=== PATIENT | female | born 1985 | race Caucasian/White ===

== ENCOUNTER 2018-10-17 20:42 | Emergency (ER) | payer BC ==
[2018-10-17 20:57] VITALS: BP 139/90
--- NOTE | 2018-10-17 21:52 | EDM.PDOC ---
ED HPI GENERAL MEDICAL PROBLEM - General Chief Complaint: ENT Problem Stated Complaint: LEFT SIDE OF TONGUE NUMB Time Seen by Provider: 10/17/18 21:13 Source of Information: Reports: Patient, RN Notes Reviewed History Limitations: Reports: No Limitations - History of Present Illness INITIAL COMMENTS - FREE TEXT/NARRATIVE: Patient is a 33-year-old female who presents to the ED today for the evaluation of left sided tongue numbness. The patient noticed this started roughly 7 AM this morning. This started after she ate [employer] Mc[employer]in for [employer]. She states that she had another bout of this for lunch today where she ate [employer]. She states that there has now been a constant pain in her left tongue for around the last hour. She states for the last week or so she's had a dull headache to the left occipital side of her head behind her ear. She did take 81 mg aspirin before coming to the ED. She has not noticed any slurred speech, facial droop or other confusion. She states the tongue feels as if she had gone to the dentist and her tongue is waking up from the numbing medication. She states she does have some numbness to the roof of her mouth on the left side as well. She noted that she did have a slight metallic taste with these episodes. She did note that she had recent dental surgery done in early September where she had a right lower molar removed. The patient notes that this was somewhat traumatic as the dentist had to really work on her tooth to get it out. The patient states she has had a tonsillectomy when she was roughly [age] years of age. She does not note any other trauma to the area. She did not have any recent bout of shingles as well. She notes she has thyroid issues and low vitamin D levels. Left Ear Pain Score (Numeric/FACES): 5 - Related Data Allergies Allergy/AdvReac Type Severity Reaction Status Date / Time ibuprofen Allergy Airway Verified 10/17/18 20:57 Tightness Home Meds: Home Meds Cholecalciferol (Vitamin D3) [Vitamin D] 50,000 unit PO ASDIRECTED 08/17/16 [ History] Levothyroxine [Synthroid] 135 mcg PO ACBREAKFAST 08/17/16 [History] Omeprazole 20 mg PO DAILY 10/17/18 [History] predniSONE [Deltasone] 20 mg PO ASDIRECTED #15 tablet 10/17/18 [Rx] Past Medical History - Past Health History Medical/Surgical History: Denies Medical/Surgical History HEENT History: Reports: Impaired Vision Gastrointestinal History: Reports: GERD OFFICE AIDE History: Reports: Musculoskeletal History: Reports: Fracture Other Musculoskeletal History: radial head left arm Endocrine/Metabolic History: Reports: Hypothyroidism Oncologic (Cancer) History: Reports: Other (See Below) Other Oncologic History: thyroid precancer - Infectious Disease History Infectious Disease History: Reports: MRSA - Past Surgical History HEENT Surgical History: Reports: Tonsillectomy Endocrine Surgical History: Reports: Thyroidectomy Social & Family History - Family History Family Medical History: Noncontributory - Tobacco Use Smoking Status *Q: Never Smoker Second Hand Smoke Exposure: No - Caffeine Use Caffeine Use: Reports: Soda - Recreational Drug Use Recreational Drug Use: No ED ROS ENT - Review of Systems Review Of Systems: See Below Constitutional: Reports: No Symptoms HEENT: Reports: Other (Left-sided tongue numbness). Denies: Dental Pain, Throat Swelling, Vertigo, Vision Change Respiratory: Reports: No Symptoms Cardiovascular: Reports: No Symptoms Endocrine: Reports: No Symptoms GI/Abdominal: Reports: No Symptoms : Reports: No Symptoms Musculoskeletal: Reports: No Symptoms Skin: Reports: No Symptoms Neurological: Reports: Headache (Left occipital), Numbness (Of left side of tongue and roof of mouth), Tingling (Of left side of tongue and roof of mouth) Psychiatric: Reports: No Symptoms Hematologic/Lymphatic: Reports: No Symptoms Immunologic: Reports: No Symptoms ED EXAM, ENT - Physical Exam Exam: See Below Exam Limited By: No Limitations General Appearance: Alert, WD/WN, No Apparent Distress Eye Exam: Bilateral Eye: EOMI, Normal Inspection, PERRL Ears: Normal External Exam, Normal Canal, Hearing Grossly Normal, Normal TMs Nose: Normal Inspection Mouth/Throat: Normal Inspection, Normal Gums, Normal Lips, Normal Oropharynx, Normal Teeth, Uvular Deviation (Rightward uvular deviation, however the patient states that this is normal for her.). No: Peritonsillar Mass, Pharyngeal Erythema, Trismus, Uvular Edema Head: Atraumatic, Normocephalic Neck: Normal Inspection Respiratory/Chest: No Respiratory Distress, Lungs Clear, Normal Breath Sounds, No Accessory Muscle Use, Chest Non-Tender Cardiovascular: Normal Peripheral Pulses, Regular Rate, Rhythm, No Murmur GI/Abdominal: Normal Bowel Sounds, Soft, Non-Tender, No Distention Extremities: Normal Inspection, Normal Capillary Refill Neurological: Alert, Oriented, Normal Cognition, No Motor/Sensory Deficits Psychiatric: Normal Affect, Normal Mood Skin: Warm, Dry, Intact, Normal Color, No Rash Course - Vital Signs Last Recorded V/S: Last Vital Signs Temp 98 F 10/17/18 20:55 Pulse 74 10/17/18 20:55 Resp 16 10/17/18 20:55 BP 139/90 10/17/18 20:55 Pulse Ox 99 10/17/18 20:55 - Orders/Labs/Meds Meds: Medications Discontinued Medications Generic Name Dose Route Start Last Admin Trade Name Lidia PRN Reason Stop Dose Admin Prednisone 40 mg 10/17/18 21:55 10/17/18 22:15 Prednisone PO 10/17/18 21:56 40 mg ONETIME ONE Administration - Re-Assessments/Exams Free Text/Narrative Re-Assessment/Exam: 10/17/18 21:54 Patient presents to the ED for the evaluation of left-sided tongue numbness. Due to the history of her having a dental procedure done beginning of this month , this is suspicious for some type of neuralgia of the trigeminal nerve distribution on the mandibular root. I will provide the patient with a steroid burst, the first dose to be given in the ED today. Departure - Departure Time of Disposition: 22:02 Disposition: Home, Self-Care 01 Condition: Fair Clinical Impression: Glossopharyngeal neuralgia - Discharge Information *PRESCRIPTION DRUG MONITORING PROGRAM REVIEWED*: No *COPY OF PRESCRIPTION DRUG MONITORING REPORT IN PATIENT LAINE: No Prescriptions: predniSONE [Deltasone] 20 mg PO ASDIRECTED #15 tablet Instructions: Glossopharyngeal Neuralgia Referrals: Jeanie Aj PA-C [Primary Care Provider] - Forms: ED Department Discharge Additional Instructions: You have been evaluated in the ED today for your left sided tongue numbness. This is likely due to nerve aggravation due to the dental procedure you had done at the beginning of September. You have been provided with a prescription for prednisone, please take this as directed for symptoms. This has been electronically sent to the [place] [facility] located [facility] [employer]. You may pick this up Saturday morning. If however the numbness does not get better by early next week, recommend that you follow up with your primary care provider for re-evaluation. Please return to the ED if your symptoms change or worsen.
[2018-10-17] MEDS ORDERED: predniSONE 20 MG Tab PO ONE (21:55)
== END 2018-10-17 22:15 | disposition home or self-care (01) ==
LOC: JD.ED 20:42
DX: G52.1 Disorders of glossopharyngeal nerve (principal); K21.9 Gastro-esophageal reflux disease without esophagitis; Z79.899 Other long term (current) drug therapy; Z88.6 Allergy status to analgesic agent
CPT/HCPCS: 99283; A9270